=== PATIENT | female | born 1970 | race African-American/Black ===

== ENCOUNTER 2022-12-09 16:53 | Outpatient (CLI) | payer OTHER ==
[2022-12-09 17:56] LABS: #Eosinphils 0.2 10x3/uL (0.0-0.5); #Monocytes 0.4 10x3/uL (0.0-1.1); #Neutrophils 3.7 10x3/uL (1.5-8.4); %Basophils 0.6 % (0.0-2.0); %Eosinophils 2.2 % (0.0-6.0); %Monocytes 5.7 % (0.0-10.0); %Neutrophils 54.4 % (40.0-75.0); Hemoglobin 12.6 g/dL (12.0-15.5); Mean Corpuscular HGB CONC 31.4 g/dL (32.0-36.0); Mean Corpuscular Hemoglobin 27.8 pg (27.0-33.0); Mean Corpuscular Volume 88.5 fl (81.6-98.3); Mean Platelet Volume 9.8 fl (7.4-10.4); Platelet Count 353 10x3/uL (150-450); RBC Distribution Width 13.6 % (11.5-14.5); Red Blood Cell (RBC) Count 4.53 10x6/uL (3.90-5.03); White Blood Cell (WBC) Count 6.9 10x3/uL (3.5-10.5)
[2022-12-09 18:06] LABS: Prothrombin Time 11.2 sec (9.5-12.1)
[2022-12-09 18:12] LABS: Anion Gap 15 mmol/L (10-20); BUN (Urea Nitrogen) 11 mg/dL (9.8-20.1); Calc. Creatinine Clearance 0 mL/min (70-130); Calcium 9.4 mg/dL (7.8-10.44); Carbon Dioxide 23 mmol/L (22-29); Chloride 109 mmol/L (98-107); Estimated GFR 63; Glucose 181 mg/dL (70-105); Potassium 3.6 mmol/L (3.5-5.1); Sodium 143 mmol/L (136-145)
== END 2022-12-09 16:54 | disposition home or self-care (01) ==
LOC: LABBT 16:53
PROVIDERS: ATTEND Orthopaedic Surgery
DX: Z01.812 Encounter for preprocedural laboratory examination (principal); M16.11 Unilateral primary osteoarthritis, right hip
CPT/HCPCS: 80048; 85025; 85610; 87081; 93005; 93010

== ENCOUNTER 2022-12-14 05:35 | Observation (INO) | payer OTHER ==
[2022-12-13 10:12] VITALS: BMI 43.5
[2022-12-14] MEDS ORDERED: Tranexamic Acid 1,000 MG/10 ML VIAL ONE (05:58)
[2022-12-14] MEDS ORDERED: Sodium Chloride 0.9% 100 ML ONE ×2 (05:58→06:47)
[2022-12-14] MEDS ORDERED: Midazolam HCl 2 mg/2 ml Vial ONE ×2 (06:13→06:41)
[2022-12-14] MEDS ORDERED: Fentanyl 250 MCG/5 ML VIAL ONE (06:13)
[2022-12-14] MEDS ORDERED: CEFAZOLIN 2 GM in Sodium Chloride 0.9% 100 ML IVPB SCH (06:15)
[2022-12-14] MEDS ORDERED: fentaNYL 50 mcg/mL 1 mL Vial ONE (06:41)
[2022-12-14] MEDS ORDERED: CEFAZOLIN 2 GM VIAL ONE (06:47)
[2022-12-14] MEDS ORDERED: SUGAMMADEX SODIUM 200 MG/2 ML VIAL ONE ×2 (07:36→09:53)
[2022-12-14] MEDS ORDERED: PHENYLEPHRINE-NS 100 MCG/ML 10 ML SYRINGE ONE (07:42)
[2022-12-14] MEDS ORDERED: PROPOFOL 200 MG/20 ML VIAL ONE (07:42)
[2022-12-14] MEDS ORDERED: Ondansetron PF 4 MG/2 ML Vial ONE (07:42)
[2022-12-14] MEDS ORDERED: Lidocaine 1.5% w/Epi 1:200K 30 ML VIAL (Epid Use) ONE (07:42)
[2022-12-14] MEDS ORDERED: Rocuronium Bromide 10 MG/ML (10ML VIAL) ONE (07:42)
[2022-12-14] MEDS ORDERED: Glycopyrrolate 0.2 MG/ML 5 ML SYRINGE ONE (07:42)
[2022-12-14] MEDS ORDERED: Metoclopramide HCl 10 MG/2 ML VIAL ONE (07:42)
[2022-12-14] MEDS ORDERED: Dexamethasone 20 MG/5 ML VIAL ONE (07:42)
[2022-12-14] MEDS ORDERED: NEOSTIGMINE 3 MG/3 ML SYR 3 MG/3 ML SYRINGE ONE (07:42)
[2022-12-14] MEDS ORDERED: Acetaminophen 325 MG TAB PO PRN ×2 (08:08→09:45)
[2022-12-14] MEDS ORDERED: Zolpidem Tartrate 5 MG TAB PO PRN ×2 (08:15→09:45)
[2022-12-14] MEDS ORDERED: diphenhydrAMINE 50 MG/ML VIAL IVP PRN (08:15)
[2022-12-14] MEDS ORDERED: Promethazine HCl 25 MG/ML VIAL IM PRN ×2 (08:15→09:45)
[2022-12-14] MEDS ORDERED: Promethazine HCl 25 MG SUPP PR PRN (08:15)
[2022-12-14] MEDS ORDERED: Ondansetron PF 4 MG/2 ML Vial IVP PRN ×2 (08:15→09:45)
[2022-12-14] MEDS ORDERED: diphenhydrAMINE 50 MG/ML VIAL IM PRN (08:15)
[2022-12-14] MEDS ORDERED: diphenhydrAMINE 25 MG CAP PO PRN ×2 (08:15→09:45)
[2022-12-14] MEDS ORDERED: Naloxone HCl 0.4 mg/ml Vial IVP PRN (08:15)
[2022-12-14] MEDS ORDERED: HYDROcodone/Acetaminophen 5/325 mg Tablet PO PRN (08:15)
[2022-12-14] MEDS ORDERED: traMADol HCl 50 MG TAB PO PRN ×2 (08:15)
[2022-12-14] MEDS ORDERED: Bupivacaine 0.25% 10 ML VIAL EPIDURAL PRN (08:15)
[2022-12-14] MEDS ORDERED: Naloxone HCl 0.4 mg/ml Vial IV PRN (08:15)
[2022-12-14] MEDS ORDERED: Moisturizing Cream (Eucerin) 113 GM JAR TOP PRN (08:15)
[2022-12-14] MEDS ORDERED: FENTANYL 500 MCG/10 ML VIAL 500 MCG, Bupivacaine 0.75% 10 ML in Sodium Chloride 0.9% 80 ML EPIDURAL SCH (08:15)
[2022-12-14] MEDS ORDERED: Aspirin 81 mg Enteric Coated Tablet PO SCH (09:45)
[2022-12-14] MEDS: HYDROcodone/Acetaminophen 5/325 mg Tablet PO PRN ×3 (11:36→19:53)
[2022-12-14] MEDS: Ketorolac Tromethamine 30 MG/ML VIAL IVP SCH ×3 (11:37→22:03)
[2022-12-14] MEDS ORDERED: UBROGEPANT 100 MG PO PRN (12:09)
[2022-12-14] MEDS ORDERED: Lorazepam 1 MG TAB PO PRN ×2 (12:11→12:13)
[2022-12-14] MEDS ORDERED: Ibuprofen 800 MG TAB PO PRN (12:11)
[2022-12-14] MEDS ORDERED: Fluticasone Propionate Nasal Spray 16 gm Bottle NASAL SCH (12:15)
[2022-12-14] MEDS ORDERED: HumaLOG 300 UNITS/3 ML VIAL SC PRN (12:20)
[2022-12-14] MEDS ORDERED: Dextrose 5% in Water 1,000 ML IV PRN (12:20)
[2022-12-14] MEDS ORDERED: Dextrose 50% Abboject 50 ML SYRINGE SLOW IVP PRN (12:20)
[2022-12-14] MEDS ORDERED: Fluticasone Propionate Nasal Spray 16 gm Bottle NASAL PRN (12:33)
[2022-12-14] MEDS: CEFAZOLIN 2 GM in Sodium Chloride 0.9% 100 ML IVPB SCH ×2 (15:51→22:03)
[2022-12-14] MEDS: HumaLOG 300 UNITS/3 ML VIAL SC PRN (16:04)
[2022-12-14] MEDS: metFORMIN 850 MG TAB PO SCH (17:34)
[2022-12-14] MEDS: FLUoxetine HCl 20 MG CAP PO SCH ×2 (19:51→19:52)
[2022-12-14] MEDS: Pregabalin 75 MG CAP PO SCH (19:52)
[2022-12-14] MEDS: Topiramate 100 MG TAB PO SCH (19:54)
[2022-12-14] MEDS ORDERED: Topiramate 100 MG TAB PO SCH (21:00)
[2022-12-14] MEDS ORDERED: FLUoxetine HCl 20 MG CAP PO SCH (21:00)
[2022-12-14] MEDS ORDERED: cloNIDine 0.1 MG TAB PO SCH ×2 (21:00)
[2022-12-14] MEDS ORDERED: Spironolactone 25 MG TAB PO SCH ×2 (21:00)
[2022-12-14] MEDS ORDERED: traZODone HCl 150 MG TAB PO SCH ×2 (21:00)
[2022-12-14] MEDS ORDERED: Multivitamin W/ Minerals 1 TAB PO SCH (21:00)
[2022-12-14] MEDS ORDERED: Pregabalin 75 MG CAP PO SCH (21:00)
[2022-12-14] MEDS ORDERED: Atorvastatin Calcium 20 MG TAB PO SCH ×2 (21:00)
[2022-12-15] MEDS: Ketorolac Tromethamine 30 MG/ML VIAL IVP SCH ×3 (05:19→17:59)
[2022-12-15 06:26] LABS: Mean Corpuscular HGB CONC 30.7 g/dL (32.0-36.0); Mean Corpuscular Hemoglobin 28.3 pg (27.0-31.0); Mean Platelet Volume 9.6 fL (7.4-10.4); Platelet Count 335 10x3/uL (130-400); RBC Distribution Width 13.8 % (11.5-14.5); Red Blood Cell (RBC) Count 3.89 mill/uL (4.20-5.40); White Blood Cell (WBC) Count 9.4 10x3/uL (4.8-10.8)
[2022-12-15] MEDS ORDERED: Ferrous Gluconate 324 MG TAB PO SCH (08:00)
[2022-12-15] MEDS ORDERED: Ferrous Sulfate 325 MG TAB PO SCH (08:00)
[2022-12-15] MEDS ORDERED: Potassium Chloride 20 MEQ TAB PO SCH ×2 (08:00→09:00)
[2022-12-15] MEDS: metFORMIN 850 MG TAB PO SCH ×2 (08:25→17:19)
[2022-12-15] MEDS: Pregabalin 75 MG CAP PO SCH (08:25)
[2022-12-15] MEDS: Topiramate 100 MG TAB PO SCH (08:46)
[2022-12-15] MEDS ORDERED: Senokot S 8.6-50 MG TAB PO SCH (09:00)
[2022-12-15] MEDS ORDERED: Loratadine 10 MG TAB PO SCH ×2 (09:00)
[2022-12-15] MEDS ORDERED: Cholecalciferol 1,000 UNITS (25 MCG) TAB PO SCH ×2 (09:00)
[2022-12-15] MEDS ORDERED: Zinc Sulfate 220 MG CAP PO SCH ×2 (09:00)
[2022-12-15] MEDS ORDERED: Multivitamin W/ Minerals 1 TAB PO SCH ×2 (09:00)
[2022-12-15] MEDS ORDERED: Labetalol HCl 100 MG/20 ML VIAL SLOW IVP PRN (09:03)
[2022-12-15] MEDS: HYDROcodone/Acetaminophen 5/325 mg Tablet PO PRN (11:35)
[2022-12-15] MEDS ORDERED: HYDROcodone/Acetaminophen 10/325 mg Tablet PO PRN ×2 (11:50→11:51)
[2022-12-15] MEDS ORDERED: fentaNYL 50 mcg/mL 1 mL Vial SLOW IVP PRN (11:51)
[2022-12-15] MEDS: HumaLOG 300 UNITS/3 ML VIAL SC PRN ×2 (12:47→17:19)
[2022-12-15 17:02] VITALS: BP 122/82; TEMP 98.5
[2022-12-15] MEDS ORDERED: Insulin Regular 300 UNITS/3 ML VIAL SC PRN (18:29)
[2022-12-15] MEDS ORDERED: Apixaban 2.5 MG TAB PO SCH (21:00)
[2022-12-15] MEDS ORDERED: Metoprolol Tartrate 25 MG TAB PO SCH (21:00)
[2022-12-15] MEDS ORDERED: cloNIDine 0.1 MG TAB PO SCH (21:00)
== END 2022-12-15 18:55 | disposition home or self-care (01) ==
LOC: SDC 05:35 → SURG B 11:15
PROVIDERS: ADMIT Orthopaedic Surgery; ATTEND Orthopaedic Surgery
PROC: 0SR904A Replacement of Right Hip Joint with Ceramic on Polyethylene Synthetic Substitute, Uncemented, Open Approach (ICD-10-PCS; principal; 2022-12-14)
DX: M16.11 Unilateral primary osteoarthritis, right hip (principal); I10 Essential (primary) hypertension; E78.5 Hyperlipidemia, unspecified; E11.40 Type 2 diabetes mellitus with diabetic neuropathy, unspecified; G43.909 Migraine, unspecified, not intractable, without status migrainosus; E66.01 Morbid (severe) obesity due to excess calories; Z68.41 Body mass index [BMI] 40.0-44.9, adult; Z79.01 Long term (current) use of anticoagulants; Z79.84 Long term (current) use of oral hypoglycemic drugs; Z79.899 Other long term (current) drug therapy; Z88.5 Allergy status to narcotic agent; Z88.8 Allergy status to other drugs, medicaments and biological substances
CPT/HCPCS: 36415; 36416; 72170; 85027; 96365; 96375; 96376; C1776; G0378; J1100; J1815; J1885; J2001; J2250; J2405; J2704; J2765; J3010; J3370; J3490; J7030